=== PATIENT | male | born 1990 | race African-American/Black ===

== ENCOUNTER 2021-01-19 11:32 | Emergency (ER) | payer OTHER, SELFPAY ==
--- NOTE | ~2021-01-19 | XR_ITS ---
EXAMINATION: XR FOOT, LEFT CLINICAL INFORMATION: Pain along the plantar aspect of the great toe. COMPARISON: None TECHNIQUE: AP, lateral, and oblique views of the left foot. FINDINGS: The bones and soft tissues are normal. No fracture. Alignment is anatomic. Joint spaces are maintained. XR/XR foot LT min 3V IMPRESSION: Normal left foot.
[2021-01-19 11:41] VITALS: BP 125/62; PULSE 68; RESP 18; TEMP 36.6; O2SAT 98; BMI 33.0
--- NOTE | 2021-01-19 12:57 | ED_ITS ---
HPI - Extremity Injury (Lower) General Chief Complaint: Extremity Injury, Lower Stated Complaint: L FOOT INJ Time Seen by Provider: 01/19/21 12:02 Source: patient Mode of arrival: ambulatory Limitations: no limitations History of Present Illness HPI Narrative: States he has pain on the plantar aspect of the foot that hurts with palpation and starts from the base of the great toe and extends to the heel area. Denies any overt injury. No redness or swelling. Onset (ago): week(s) (2) Injury: Left: foot Place: other (No specific injury ) Other symptoms: none Related Data Previous Rx's Medication Instructions Recorded ibuprofen 800 mg PO Q8H PRN #30 tab 01/19/21 methylprednisolone [Medrol (Golden)] 4 mg PO PER PKG DIR #21 ea 01/19/21 Allergies Allergy/AdvReac Type Severity Reaction Status Date / Time No Known Allergies Allergy Verified 01/19/21 11:43 Review of Systems Review of Systems: Constitutional: No Weight loss, No Fever, No Chills, No Night Sweats, No Fatigue, No Malaise ENT/Mouth: No Hearing loss, No Ear Pain, No Nasal Congestion, No Sinus Pain, No Hoarseness, No sore throat, No Rhinorrhea, No Swallowing Difficulty Eyes: No Eye Pain, No Swelling, No Redness, No Foreign Body, No Discharge, No Vision Changes Cardiovascular: No Chest Pain, No SOB, No Dyspnea on Exertion, No Orthopnea, No Edema, No Palpitations Respiratory: Negative Gastrointestinal: Negative Genitourinary: Negative Musculoskeletal: No joint pain, No Myalgias, No Joint Swelling Skin: No Skin Lesions, No rash Neuro: No Weakness, No Numbness, No Paresthesias, No Loss of Consciousness, No Dizziness, No Headache Psych: Negative Heme/Lymph: No Bruising, No Bleeding,No Lymphadenopathy Endocrine: No Polyuria, No Polydipsia, No Temperature Intolerance Yes all other systems are reviewed and are negative [facility] Past Medical History Medical History (Updated 01/20/21 @ 00:00 by Background Daemon) No known health problems Social History Social History Advance Directives: No Advance Directives Information Provided: No Physical Exam Vital Signs: Vital Signs: Last Vital Signs Temp 97.8 F 01/19/21 11:41 Pulse 68 01/19/21 11:41 Resp 18 01/19/21 11:41 BP 125/62 03/06/21 11:41 Pulse Ox 98 01/19/21 11:41 Body Mass Index 33.0 Reviewed Const: General: cooperative and healthy appearing; No acute distress or intoxi cated appearing Nutritional Appearance: average body habitus Orientation/consciousness: patient oriented x3 HENMT: Head: Yes normal to inspection Ears: hearing grossly normal bilaterally Chest: Chest palpation & inspection: normal inspection of the chest Resp: Effort & Inspection: normal respiratory effort Cardio: Rhythm: regular rhythm Heart sounds: S1 normal heart sound present and S2 normal heart sound present : General: Yes no CVA tenderness Back/Spine/Pelvis: Back: no CVA tenderness Skin: General skin exam: no rashes or lesions noted Neuro: General: patient oriented x3 Extrem: General: Yes normal to inspection Left lower extremity: foot (Pain to the plantar aspect over the plantar fascia, no swelling, induration) Details: tenderness (Achilles tendon within normal limits, flatfoot) Location: of the plantar foot and toes with normal ROM MDM - Extremity Injury (Lower) Medical Records Attestation: I reviewed the patient's medical records. Lab Data Attestation: I reviewed the patient's lab results. Imaging Data Left foot x-ray: Radiologist's impression: [address] [id number] ReportSigned Patient: VALDEMAR MEDRANO#: [id number]: 1990Acct:[id number]/Sex: 30 / MADM Date: 01/19/21Loc: [email or web address] Dr: Ordering Physician: Abdirizak Nguyen NP Date of Service: 01/19/21 Procedure(s): XR foot LT min 3V Accession Number(s): [id number] cc: Abdirizak Nguyen NP~ EXAMINATION: XR FOOT, LEFT CLINICAL INFORMATION: Pain along the plantar aspect of the great toe. COMPARISON: None TECHNIQUE: AP, lateral, and oblique views of the left foot. FINDINGS: The bones and soft tissues are normal. No fracture. Alignment is anatomic. Joint spaces are maintained. XR/XR foot LT min 3V IMPRESSION: Normal left foot. Dictated By:SHAGUFTA QUACH MDSigned By:<Electronically signed by SHAGUFTA QUACH MD in [place]>01/19/21 1236 DD/ 1202TD/TT: Neckties Painter: PK Discharge Plan Discharge Clinical Impression: Plantar fasciitis of left foot Patient Disposition: Home, Self-Care Instructions: Plantar Fasciitis (ED) Additional Instructions: x-ray the foot did not show any acute findings Warm compresses Supportive footwear Take medication prescribed Follow up with her primary care doctor as discussed Thank you Prescriptions: New ibuprofen 800 mg tablet 800 mg PO Q8H PRN (Reason: pain) Qty: 30 RF: 0 methylprednisolone [Medrol (Golden)] 4 mg tablets,dose pack 4 mg PO PER PKG DIR Qty: 21 RF: 0 Referrals: Lori Martinez MD [Physician] - 2 days Stand Alone Forms: Work/School Release Interventions: ED Discharge Assessment Last Done: 01/19/21 13:09 Discharge Date/Time: 01/19/21 13:09
== END 2021-01-19 13:09 | disposition home or self-care (01) ==
PROVIDERS: Emergency Provider Emergency Medicine
DX: M72.2 Plantar fascial fibromatosis (principal); M79.672 Pain in left foot
CPT/HCPCS: 73630; 99283